=== PATIENT | male | born 1960 | race Caucasian/White ===

== ENCOUNTER → 2019-09-11 12:03 | Outpatient (CLI) | payer BC, SELFPAY ==
--- NOTE | ~2019-09-11 | XR_ITS ---
EXAMINATION: XR chest 2V DATE: 09/11/2019 12:16 INDICATION: Abnormal weight loss. TECHNIQUE: Frontal and lateral views of the chest were obtained. COMPARISON: None. FINDINGS: The chest demonstrates clear lungs without pneumonia, pleural effusion, or pneumothorax. Th e heart size is normal. IMPRESSION: 1. No acute cardiopulmonary disease. Reviewed, dictated and finalized at location A. GER INFUSION
== END ==
PROVIDERS: PCP Internal Medicine; Visit Provider Internal Medicine
DX: R63.4 Abnormal weight loss (principal)
CPT/HCPCS: 71046

== ENCOUNTER 2020-01-18 08:16 | Outpatient (CLI) | payer BC, SELFPAY ==
--- NOTE | 2020-01-18 08:42 | EST_ITS ---
Patient Info Name: Pranav Walter Age: 59 years : 1960 Gender: Male Ht: 69 in Wt: 157 lbs BSA: 1.87 m2 Exam Date: 01/18/2020 9:17 AM Exam Location: [facility] Patient Status: Outpatient Admit Date: 01/18/2020 Staff Ordering Physician: Macho Recinos DO Self Pay Collector: Clifton Wright RDCS, RT Attending Provider: PK NEGRO DO Referring Physician: Jorje HARRISON; Exercise Technologist: Iris Mares RDCS Exercise Physician: Pk Negro DO Exam Type: CA stress echo Study Info Indications R06.02 - Shortness of breath Treadmill exercise stress echocardiogram is performed. Summary 1. 1. Equivocal Fantasma exercise stress test for ischemic ST changes by ECG criteria with upsloping ST depressions. 2. 2. Reduced functional capacity, achieving 7 METs of workload. 3. 3. Baseline hypertension. 4. 4. Appropriate HR response to exercise. 5. 5. Appropriate HR recovery at 1 minute post exercise. 6. 6. Negative stress echocardiogram for ischemia by wall motion analysis. 7. 7. Patient informed of the above results. Stress Echo Findings Left Ventricle Appropriate increase in LV endocardial thickening with systole. Appropriate augmentation of contractility with systole. No wall motion abnormality. Left Ventricle Normal LV systolic function, no wall motion abnormality. Protocol: Fantasma Stress ECG Details Stage: REST Duration (min): 1 min : 44 sec Speed (mph): 0.0 Grade (%): 0 HR (bpm): 84 SBP (mmHg): 166 DBP (mmHg): 88 METS: --- Stage: REST Duration (min): 22 min : 56 sec Speed (mph): 0.0 Grade (%): 0 HR (bpm): 74 SBP (mmHg): 166 DBP (mmHg): 88 METS: --- Stage: STAGE 1 Duration (min): 1 min : 0 sec Speed (mph): 1.7 Grade (%): 10 HR (bpm): 103 SBP (mmHg): 166 DBP (mmHg): 88 METS: --- Stage: STAGE 1 Duration (min): 2 min : 0 sec Speed (mph): 1.7 Grade (%): 10 HR (bpm): 125 SBP (mmHg): 166 DBP (mmHg): 88 METS: --- Stage: STAGE 1 Duration (min): 3 min : 0 sec Speed (mph): 1.7 Grade (%): 10 HR (bpm): 127 SBP (mmHg): 194 DBP (mmHg): 93 METS: --- Stage: STAGE 2 Duration (min): 1 min : 0 sec Speed (mph): 2.5 Grade (%): 12 HR (bpm): 134 SBP (mmHg): 194 DBP (mmHg): 93 METS: --- Stage: STAGE 2 Duration (min): 2 min : 0 sec Speed (mph): 2.5 Grade (%): 12 HR (bpm): 138 SBP (mmHg): 206 DBP (mmHg): 95 METS: --- Stage: STAGE 2 Duration (min): 3 min : 0 sec Speed (mph): 2.5 Grade (%): 12 HR (bpm): 147 SBP (mmHg): 206 DBP (mmHg): 95 METS: --- Stage: STAGE 3 Duration (min): 0 min : 1 sec Speed (mph): 0.0 Grade (%): 0 HR (bpm): 147 SBP (mmHg): 206 DBP (mmHg): 95 METS: --- Stage: RECOVERY Duration (min): 0 min : 58 sec Speed (mph): 0.0 Grade (%): 0 HR (bpm): 106 SBP (mmHg): 197 DBP (mmHg): 88 METS: --- Stage: RECOVERY Duration (min): 1 m
== END 2020-01-18 08:17 | disposition home or self-care (01) ==
LOC: ANHCARD 08:17
PROVIDERS: PCP Internal Medicine; Visit Provider Internal Medicine
DX: R68.89 Other general symptoms and signs (principal); R00.0 Tachycardia, unspecified; I10 Essential (primary) hypertension
CPT/HCPCS: 93351

== ENCOUNTER 2021-10-07 13:33 | Outpatient (CLI) | payer BC, SELFPAY ==
--- NOTE | ~2021-10-07 | MR_ITS ---
EXAMINATION: MR brain IAC wo/w con DATE: 10/07/2021 15:25 INDICATION: Bilateral tinnitus. Asymmetric sensorineural hearing loss. TECHNIQUE: Magnetic resonance imaging (MRI) of the brain, brainstem, and internal auditory canals was performed without and with 14 mL MultiHance intravenous contrast. Sequences included sagittal and ax ial T1-weighted FSE, axial diffusion-weighted FS EPI, axial T2*-weighted GRE, axial T2-weighted FLAIR Propeller, axial T2-weighted Propeller, small prsef-fg-ovdj coronal FIESTA, small zuthn-rf-dchh rachel nal T1-weighted FSE, and small etvii-ia-yhdu axial T1-weighted SPGR. Postcontrast sequences included axial T1-weighted FSE, small tghyr-qg-mujy coronal T1-weighted FSE, and small drwbd-sr-lysv axial T1- weighted SPGR. Apparent diffusion coefficient (ADC) maps were created. COMPARISON: None. FINDINGS: There are scattered areas of nonspecific increased T2-weighted signal intensity in the cere bral white matter, which is within normal limits for the patient's age. There is no intracranial hemo rrhage, acute infarction, or abnormal intracranial mass lesion. The ventricles are normal in size. Th e paranasal sinuses are clear. The orbits are normal. Internal auditory canals and inner and middle e ars are normal. The mastoid air cells are normal. IMPRESSION: 1. Normal brain. Reviewed, dictated and finalized at location A. GAGE COUNSELOR IMPRESSION: 1. Normal brain.
[2021-10-07 14:34] LABS: Estimated Glomerular Filt Rate > 60
== END 2021-10-07 13:34 | disposition home or self-care (01) ==
LOC: ANHIMG 13:37
PROVIDERS: PCP Internal Medicine
DX: H93.13 Tinnitus, bilateral (principal); H90.3 Sensorineural hearing loss, bilateral
CPT/HCPCS: 70553; A9577